=== PATIENT | female | born 1960 | race Hispanic/Latino ===

== ENCOUNTER 2020-05-26 16:36 | Emergency (ER) | payer OTHER ==
[~2020-05-26] VITALS: Ht 162.6 cm; Wt 66.0 kg
[~2020-05-26 16:36] MED LIST: AMLODIPINE5 MG PO; GABAPENTIN100 MG PO; LISINOPRIL20 MG PO; METFORMIN500 MG PO
[2020-05-26] MEDS ORDERED: VOLTAREN75 MG PO (21:06)
[2020-05-26] MEDS ORDERED: LORTAB 5/3255 MG PO (21:06)
[2020-05-26 21:30] VITALS: BP 161/76
== END 2020-05-26 21:40 | disposition home or self-care (01) | DRG 563 ==
LOC: ED 16:36
PROC: 0RSKXZZ Reposition Left Shoulder Joint, External Approach (ICD-10-PCS; principal; 2020-05-26)
DX: S43.015A Anterior dislocation of left humerus, initial encounter (principal); I10 Essential (primary) hypertension; W01.0XXA Fall on same level from slipping, tripping and stumbling without subsequent striking against object, initial encounter; Y93.H2 Activity, gardening and landscaping; Y92.89 Other specified places as the place of occurrence of the external cause; Y99.0 Civilian activity done for income or pay